=== PATIENT | female | born 1990 | race Caucasian/White ===

== ENCOUNTER 2016-07-05 22:36 | Emergency (ER) | payer OTHER ==
[~2016-07-05] VITALS: Ht 160 cm; Wt 47.7 kg
[~2016-07-05 22:36] MED LIST: AUG875 PO
[2016-07-05 22:44] VITALS: Ht 160 cm; Wt 47.7 kg
[2016-07-05] MEDS ORDERED: DEXAMETHASONE 10 MG/ML 1 ML INJ PO ONE (23:30)
[2016-07-06] MEDS ORDERED: PRED20TA PO (00:24)
[2016-07-06] MEDS ORDERED: PEN500 PO (00:24)
--- NOTE | 2016-07-06 00:35 | ERD ---
ER Documentation Chief Complaint Date/Time DATE: 07/06/16 TIME: 00:31 Chief Complaint swollen /inflamed throat and feels like something is stuck, airway intact HPI This is a 25-year-old female presents to the ER with swollen lymph nodes on the right side of her neck. Patient states that she started feeling this a couple hours ago. Patient was sick a couple days ago with a flu. Patient denies any shortness of breath. She feels as if there is something stuck in her throat however she has not swallowed anything. She does have seasonal allergies. She does not have any rashes. She does not have any chest pain or shortness of breath. ROS 12 point review of systems was done, all negative except per HPI. Medications Home Meds Active Scripts Penicillin V Potassium* (Penicillin V K*) 500 Mg Tab, 500 MG PO BID for 7 Days, TAB Prov:REYMUNDO KRISHNAMURTHY 07/06/16 Amoxicillin-Clavulanate K* (Augmentin*) 875 Mg Tab, 875 MG PO BID for 10 Days, TAB Prov:ZURI KENNEY NP 05/16/15 Allergies Allergies: Coded Allergies: No Known Drug Allergy (Verified Allergy, Unknown, 05/16/15) PMhx/Soc History of Surgery: Yes (tonsillectomy) Anesthesia Reaction: No Hx Neurological Disorder: No Hx Respiratory Disorders: No Hx Cardiac Disorders: No Hx Psychiatric Problems: No Hx Miscellaneous Medical Probl: Yes (allergies) Hx Alcohol Use: No Hx Substance Use: No Hx Tobacco Use: No Smoking Status: Never smoker Physical Exam Vitals Vital Signs Date Time Temp Pulse Resp B/P Pulse Ox O2 Delivery O2 Flow Rate FiO2 07/05/16 22:44 98.1 78 20 123/75 100 Physical Exam GENERAL: The patient is well-developed, well-nourished, in no acute distress. NECK: Right cervical lymphadenopathy with tender lymph nodes. HEENT: Atraumatic. Pupils equal, round and reactive to light. Extraocular muscles are grossly intact. Conjunctivae pink, no discharge. Bilateral tympanic membranes are clear with no evidence of erythema, effusion or dulling of the light reflex. RESPIRATORY: Clear to auscultation bilaterally. There are no rales, wheezes or rhonchi. HEART: Regular rate and rhythm. No murmurs, clicks, rubs or gallops. EXTREMITIES: No clubbing or cyanosis. Full range of motion. Grossly neurovascularly intact. NEUROLOGIC: Alert and oriented. Cranial nerves II through XII are intact. SKIN: There is no rash. The skin is warm and dry. Results 24 hrs Current Medications Medications (Trade) Dose Ordered Sig/Saul Route PRN Reason Start Time Stop Time Status Last Admin Dose Admin Dexamethasone (Decadron) 8 mg ONCE ONCE PO 07/05/16 23:30 07/05/16 23:31 DC 07/06/16 00:20 Procedures/MDM This is a 25-year-old female presents to the ER with swollen lymph nodes. At this time suspicion for strep throat, abscess is low there is no uvular deviation. Patient had a tonsillectomy. Lymph nodes are likely swollen secondary to viral process. Patient was recently sick this may be the cause for the swelling. She was given Decadron here in the ER. Patient's airway is not compromised she is not hypoxic or in any respiratory distress. She is afebrile and well-appearing. Patient will be sent home with a course of antibiotics for any potential bacterial infection. Patient is to follow-up with her primary care doctor within 1-2 days or return to ER sooner if symptoms worsen. My medical decision making was shared with the patient she understands and agrees with plan. Departure Diagnosis: Primary Impression: Lymphadenopathy Condition: Stable Patient Instructions: When Your Child Has Swollen Lymph Nodes Additional Instructions: Call your primary care doctor TOMORROW for an appointment during the next 1-2 days.See the doctor sooner or return here if your condition worsens before your appointment time. REYMUNDO KRISHNAMURTHY Jul 06, 2016 00:35
== END 2016-07-06 00:58 | disposition home or self-care (01) ==
LOC: FTE 22:36
DX: R59.1 Generalized enlarged lymph nodes (principal)
CPT/HCPCS: 99283; J1100